=== PATIENT | female | born 1995 | race Two or more races ===

== ENCOUNTER 2021-11-19 21:06 | Emergency (ER) | payer OTHER, MEDICAID ==
[~2021-11-19] VITALS: Ht 160 cm; Wt 95.3 kg
[2021-11-20 00:55] VITALS: BP 103/61
[2021-11-20] MEDS ORDERED: ALPRAZolam 0.5 MG TAB PO ONE (02:15)
== END 2021-11-20 02:29 | disposition home or self-care (01) ==
LOC: ER 21:06 → EDBD 21:06 → ER 11-20 02:29
DX: F41.1 Generalized anxiety disorder (principal)